=== PATIENT | male | born 1955 | race Caucasian/White ===

== ENCOUNTER 2019-08-31 15:32 | Inpatient (IN) | payer OTHER ==
[~2019-08-31] VITALS: Ht 182.9 cm; Wt 114.8 kg
--- OUTSIDE RECORDS SUMMARY | 2019-08-31 15:34 | XMS REPORT ---
Author Author [facility] Address Unknown Phone Unavailable Care Team Providers Care Surgical Services Manager Name Role Phone OVIDIO SJ Unavailable Unavailable Shawnee SHETH Unavailable Unavailable JAY LLANOS Unavailable Unavailable Problems This patient has no known problems. Allergies, Adverse Reactions, Alerts This patient has no known allergies or adverse reactions. Medications This patient has no known medications. Encounters Start Date/Time End Date/Time Encounter Type Admission Type Attending Clinicians [facility] Facility Care Department Encounter ID 2019-02-06 02:50:00 2019-02-06 02:50:00 Outpatient E [facility] MED [id number] Results Test Description Test Time Test Comments Text Results Atomic Results Result Comments BASIC METABOLIC PANEL 2019-04-03 07:48:00 SODIUM (BEAKER) (test tyjt=916) 133 meq/L 136-145 POTASSIUM (BEAKER) (test vyrl=328) 4.5 meq/L 3.5-5.1 Specimen slightly hemolyzed CHLORIDE (BEAKER) (test yttz=807) 97 meq/L 98-107 CO2 (BEAKER) (test unbw=054) 27 meq/L 22-29 BLOOD UREA NITROGEN (BEAKER) (test mlsr=264) 33 mg/dL 7-21 CREATININE (BEAKER) (test ktso=278) 1.49 mg/dL 0.57-1.25 Specimen slightly hemolyzed GLUCOSE RANDOM (BEAKER) (test uujr=091) 188 mg/dL 70-105 CALCIUM (BEAKER) (test terc=486) 10.0 mg/dL 8.4-10.2 EGFR (BEAKER) (test zcdm=6178) 48 mL/min/1.73 sq m ESTIMATED GFR IS NOT ACCURATE CREATININE CLEARANCE IN PREDICTING GLOMERULAR FILTRATION RATE. ESTIMATED GFR IS NOT APPLICABLE FOR DIALYSIS PATIENTS. CBC W/PLT COUNT & AUTO [id number] 07:33:00* Test Item Value Reference Range Comments WHITE BLOOD CELL COUNT (BEAKER) (test thze=067) 5.0 K/ L 3.5-10.5 RED BLOOD CELL COUNT (BEAKER) (test cjry=576) 5.15 M/ L 4.63-6.08 HEMOGLOBIN (BEAKER) (test jkjq=517) 14.4 GM/DL 13.7-17.5 HEMATOCRIT (BEAKER) (test zinp=725) 43.8 % 40.1-51.0 MEAN CORPUSCULAR VOLUME (BEAKER) (test uipt=699) 85.0 fL 79.0-92.2 MEAN CORPUSCULAR HEMOGLOBIN (BEAKER) (test whxi=850) 28.0 pg 25.7-32.2 MEAN CORPUSCULAR HEMOGLOBIN CONC (BEAKER) (test ihwu=621) 32.9 GM/DL 32.3-36.5 RED CELL DISTRIBUTION WIDTH (BEAKER) (test fede=305) 15.2 % 11.6-14.4 PLATELET COUNT (BEAKER) (test bmho=395) 130 K/CU MM 150-450 MEAN PLATELET VOLUME (BEAKER) (test smzi=102) 10.1 fL 9.4-12.4 NUCLEATED RED BLOOD CELLS (BEAKER) (test dqby=486) 0 /100 WBC 0-0 NEUTROPHILS RELATIVE PERCENT (BEAKER) (test wnvq=622) 60 % LYMPHOCYTES RELATIVE PERCENT (BEAKER) (test hbdi=391) 24 % MONOCYTES RELATIVE PERCENT (BEAKER) (test ndru=920) 12 % EOSINOPHILS RELATIVE PERCENT (BEAKER) (test fwcp=498) 3 % BASOPHILS RELATIVE PERCENT (BEAKER) (test ghll=967) 1 % NEUTROPHILS ABSOLUTE COUNT (BEAKER) (test xaak=325) 3.00 K/ L 1.78-5.38 LYMPHOCYTES ABSOLUTE COUNT (BEAKER) (test qurv=629) 1.23 K/ L 1.32-3.57 MONOCYTES ABSOLUTE COUNT (BEAKER) (test kujy=621) 0.59 K/ L 0.30-0.82 EOSINOPHILS ABSOLUTE COUNT (BEAKER) (test fwii=202) 0.17 K/ L 0.04-0.54 BASOPHILS ABSOLUTE COUNT (BEAKER) (test dszg=778) 0.04 K/ L 0.01-0.08 IMMATURE GRANULOCYTES-RELATIVE PERCENT (BEAKER) (test hhum=2742) 0 % 0-1 BASIC METABOLIC [id number] 06:54:00* Test Item Value Reference Range Comments SODIUM (BEAKER) (test yixg=072) 134 meq/L 136-145 POTASSIUM (BEAKER) (test ykkt=973) 4.4 meq/L 3.5-5.1 Specimen slightly hemolyzed CHLORIDE (BEAKER) (test eors=053) 103 meq/L 98-107 CO2 (BEAKER) (test bnqx=832) 22 meq/L 22-29 BLOOD UREA NITROGEN (BEAKER) (test zzyk=733) 12 mg/dL 7-21 CREATININE (BEAKER) (test sypo=168) 0.79 mg/dL 0.57-1.25 Specimen slightly hemolyzed GLUCOSE RANDOM (BEAKER) (test cedu=705) 150 mg/dL 70-105 CALCIUM (BEAKER) (test cwlx=595) 9.1 mg/dL 8.4-10.2 EGFR (BEAKER) (test hrmk=3509) 100 mL/min/1.73 sq m ESTIMATED GFR IS NOT ACCURATE CREATININE CLEARANCE IN PREDICTING GLOMERULAR FILTRATION RATE. ESTIMATED GFR IS NOT APPLICABLE FOR DIALYSIS PATIENTS. CBC (HEMOGRAM ONLY)2019-01-19 06:36:00* Test Item Value Reference Range Comments WHITE BLOOD CELL COUNT (BEAKER) (test ccyc=816) 5.2 K/ L 3.5-10.5 RED BLOOD CELL COUNT (BEAKER) (test euws=496) 5.02 M/ L 4.63-6.08 HEMOGLOBIN (BEAKER) (test zamx=219) 13.9 GM/DL 13.7-17.5 HEMATOCRIT (BEAKER) (test ttwa=117) 43.4 % 40.1-51.0 MEAN CORPUSCULAR VOLUME (BEAKER) (test myio=678) 86.5 fL 79.0-92.2 MEAN CORPUSCULAR HEMOGLOBIN (BEAKER) (test wcit=485) 27.7 pg 25.7-32.2 MEAN CORPUSCULAR HEMOGLOBIN CONC (BEAKER) (test rslo=198) 32.0 GM/DL 32.3-36.5 RED CELL DISTRIBUTION WIDTH (BEAKER) (test imod=812) 14.9 % 11.6-14.4 PLATELET COUNT (BEAKER) (test gbno=450) 103 K/CU MM 150-450 MEAN PLATELET VOLUME (BEAKER) (test cxpv=553) 11.4 fL 9.4-12.4 NUCLEATED RED BLOOD CELLS (BEAKER) (test geyk=820) 0 /100 WBC 0-0 POCT-GLUCOSE [id number] 23:57:00* Test Item Value Reference Range Comments POC-GLUCOSE METER (BEAKER) (test wtkc=1745) 184 mg/dL 70-110 TESTED AT [place] [address] [id number] 21:13:00* Test Item Value Reference Range Comments ACTIVATED CLOTTING TIME (BEAKER) (test hpfe=395) 131 sec TESTED AT [place] [address] [id number] 18:58:00* Test Item Value Reference Range Comments ACTIVATED CLOTTING TIME (BEAKER) (test lawi=324) 158 sec TESTED AT [place] [address] [id number] 15:36:00* Test Item Value Reference Range Comments ACTIVATED CLOTTING TIME (BEAKER) (test ogek=376) 219 sec TESTED AT [place] [address] [id number] 15:36:00* Test Item Value Reference Range Comments ACTIVATED CLOTTING TIME (BEAKER) (test qyvs=483) 224 sec TESTED AT [place] [address] [id number] 15:36:00* Test Item Value Reference Range Comments ACTIVATED CLOTTING TIME (BEAKER) (test nuuc=467) 279 sec TESTED AT [place] [address] BASIC METABOLIC [id number] 09:32:00* Test Item Value Reference Range Comments SODIUM (BEAKER) (test ecjo=300) 135 meq/L 136-145 POTASSIUM (BEAKER) (test faze=775) 3.7 meq/L 3.5-5.1 CHLORIDE (BEAKER) (test drva=332) 100 meq/L 98-107 CO2 (BEAKER) (test psfm=115) 25 meq/L 22-29 BLOOD UREA NITROGEN (BEAKER) (test ysuv=629) 20 mg/dL 7-21 CREATININE (BEAKER) (test nqxo=174) 1.06 mg/dL 0.57-1.25 GLUCOSE RANDOM (BEAKER) (test dzjv=003) 181 mg/dL 70-105 CALCIUM (BEAKER) (test vela=497) 9.3 mg/dL 8.4-10.2 EGFR (BEAKER) (test srlf=5600) 71 mL/min/1.73 sq m ESTIMATED GFR IS NOT ACCURATE CREATININE CLEARANCE IN PREDICTING GLOMERULAR FILTRATION RATE. ESTIMATED GFR IS NOT APPLICABLE FOR DIALYSIS PATIENTS. CBC (HEMOGRAM ONLY)2019-01-18 09:18:00* Test Item Value Reference Range Comments WHITE BLOOD CELL COUNT (BEAKER) (test bwvv=395) 5.1 K/ L 3.5-10.5 RED BLOOD CELL COUNT (BEAKER) (test vdnu=803) 5.09 M/ L 4.63-6.08 HEMOGLOBIN (BEAKER) (test exdi=772) 13.9 GM/DL 13.7-17.5 HEMATOCRIT (BEAKER) (test sbmr=668) 43.7 % 40.1-51.0 MEAN CORPUSCULAR VOLUME (BEAKER) (test hbxe=731) 85.9 fL 79.0-92.2 MEAN CORPUSCULAR HEMOGLOBIN (BEAKER) (test lvyz=383) 27.3 pg 25.7-32.2 MEAN CORPUSCULAR HEMOGLOBIN CONC (BEAKER) (test qbsa=380) 31.8 GM/DL 32.3-36.5 RED CELL DISTRIBUTION WIDTH (BEAKER) (test vkdl=320) 14.5 % 11.6-14.4 PLATELET COUNT (BEAKER) (test uvhk=621) 99 K/CU MM 150-450 MEAN PLATELET VOLUME (BEAKER) (test kbug=402) 11.2 fL 9.4-12.4 NUCLEATED RED BLOOD CELLS (BEAKER) (test xrjo=096) 0 /100 WBC 0-0 CT, CTA [id number] 16:42:00Addendum BeginsREPORT STATUS:A Addendum: I agree with the previously described non vascular findings. Signed: Jose Yeager Verified Date/Time: 01/10/2019 16:42:17 Reading Location: [place] [address] Angio Body Reading RoomAddendum EndsFINAL REPORT CT angiography of the thoracoabdominal aorta and pelvic arteries, 09 January 2019 INDICATION: This is a 63 year old male with a diagnosis of aortic stenosis, presents for preprocedure TAVR assessment. This study is performed in an attempt to avoid an invasive procedure. TECHNIQUE: Spiral acquisition before and during intravenous contrast administration using a Angelina multidetector CT scanner. Images were obtained before and during the dynamic passage of intravenous contrast material. Multi-planar 3-D volume- rendering reconstruction was performed using an independent workstation interactively by the interpreting physician as well as the 3-D specialist for optimal visualization of the thoracoabdominal aorta, the pelvic arteries as well as its proximal branches. Please refer to the contrast sheet scanned in the EPIC system for the amount and route of contrast given. This exam was performed according to our departmental dose-optimisation programme, which includes au tomated exposure control, adjustment of the mA and/or kV according to patient si ze and/or use of iterative reconstruction technique. Dose modulation, iterative reconstruction, and/or weight based adjustment of the mA/kV was utilized to redu ce the radiation dose to as low as reasonably achievable. FINDINGS: VASCULAR: E lectronic device is identified in the left upper chest, with associated surgical clips identified. Pacing leads are identified in the right-sided cardiac chambe rs. The central pulmonary artery is prominent. There is no evidence of central p ulmonary artery embolism. The cardiac chambers demonstrate normal atrioventricul ar and ventriculoarterial concordance, and systemic and pulmonary venous return. The left ventricle is normal in size. Mild left atrial prominence is identified. Coronary artery origins are normal and diffuse artery calcification identified. Mitral annular calcification is seen in the anterior mitral valve annulus. Pat ient is post coronary artery bypass surgery. The left internal mammary artery gr aft is seen connecting to the distal LAD that is widely patent. At image 78, the internal mammary graft is immediately posterior, and to the left side of the st ernum. Furthermore, 2 other bypass grafts are seen, one to the diagonal artery a nd one to the left circumflex system and they appears to be patent. The more sup erior bypass graft, at image 99, is approximately 1.5 cm posterior to the sternu m, and the more inferior bypass graft, image 114 is approximately 19 mm behind t he sternum. There is also a bypass graft to the right coronary artery territory but it appears to be occluded. Patient has a diagnosis of aortic stenosis. The a ortic valve is tricuspid. The aortic Agatston score is 1428. The aortic valve ar ea is not well measured. The location of aortic valvular calcification can be se en in reformatted data set sent to PACS. Regarding the aorta, the aortic root dunham s minimal calcification identified. Mild ectasia is seen in the mid ascending th oracic aorta and only tiny calcification is seen in the ascending thoracic aorta . The transverse arch and descending thoracic aorta had minimal calcification id entified. The abdominal aorta has overall mild calcific and noncalcific atherosc lerosis seen. No acute aortic pathology is identified and no dissection or conta ined rupture is seen. Arch vessel branching pattern is normal and the visualised arch vessels are seen to be widely patent proximally. The left subclavian arter y, image 22 measuring 8 mm in diameter and the right subclavian artery, at image 13, it measures approximately 7 to 8 mm in diameter. The coeliac axis, SMA, JESIKA are widely patent. There are single left and right renal arteries that are wide ly patent. Early branching is seen in the left renal artery. Single left and 2 r ight renal veins are seen, draining normally into the IVC. The common iliac, ext ernal iliac, common femoral, and the visualised superficial femoral arteries, bi laterally, are widely patent with minimal calcific atherosclerosis identified. D imensions that may be helpful for TAVR as follows: Only minimal calcification is seen in the aortic root, and the ascending thoracic aorta only had tiny calcifi cation present. The major and minor aortic annulus diameter measures 30.22 and 0.9 mm, respectively. The aortic annulus perimeter measured 81 mm and the cross- sectional area measures 495 mm2. The aortic annulus diameter at the traditional LVOT and coronal LVOT measures 22.1 and 23.0 mm, respectively. For reference pur pose, per [employer]OWMAN S3 brochure, recommendation are as follows: CT area between 27 3 to 345 mm2 (20 mm valve); 338 to 430 mm2 (23 mm valve); 430 to 546 mm2 (26 mm valve); 540 to 683 mm2 (29 mm valve). For reference purpose, per [employer] t R brochure, recommendation are as follows: CT perimeter between 56.5-62.8 mm ( 23 mm valve); 62.8-72.3 mm (26 mm valve); 72.3-81.7 mm (29 mm valve); and 81.7-9 4.2. mm (34 mm valve). Agatston Score is 1428. The sinus of Valsalva height, R CC (systole): 17.2 mmThe sinus of Valsalva height, LCC (systole): 13.9 mm The si nus of Valsalva diameter, RCC (systole): 34.9 mmThe sinus of Valsalva diameter, LCC (systole): 35.7 mmThe sinus of Valsalva diameter, NCC (systole): 32.6 mm The takeoff of the most inferior bypass graft to the aortic annulus has a distance of 2.5 cm. See snapshot for details. The sinotubular junction measures approxima tely 33.0 x 32.3 mm. The aortic root angulation measures 38.5 degrees. The minim al and perpendicular abdominal aortic diameter measures 15.5 and 16.0 mm, respec tively. There is no evidence of thoracoabdominal aortic aneurysm or stent cathie cement present. The minimum and the perpendicular left common iliac artery measu res 6.9 and 9.9 mm, respectively with mild tortuosity and yzsv-gz-peabefuw calc ific and noncalcific atherosclerosis present. The minimum and the perpendicular left external iliac artery measures 7.4 and 7.7 mm, respectively with mild tor tuosity and no calcific atherosclerosis present. The minimum and the perpendicu lar left femoral artery measures 7.10 and 7.3 mm, respectively with minimal tor tuosity and mild calcific atherosclerosis present. The minimum and the perpendi cular right common iliac artery measures 7.5 and 8.0 mm, respectively with mild tortuosity and tyeu-wg-uqnxtlwm calcific atherosclerosis present. The minimum and the perpendicular right external iliac artery measures 6.9 and 8.0 mm, resp ectively with mild tortuosity and xazs-qb-pygfdigp calcific atherosclerosis pr esent. The minimum and the perpendicular right femoral artery measures 7.7 and 7 .7 mm, respectively with mild tortuosity and mild calcific atherosclerosis pre sent. NON-VASCULAR: The visualised thyroid gland appears unremarkable. Patient is post median sternotomy. The chest wall and mediastinum has a number of lymph nodes identified. They are mildly prominent. At image 93, one lymph node measur es 13 mm in diameter. In the subcarinal area, one of the lymph nodes measures ap proximately 12 mm image 145. Overall, they could be reactive in nature. An adden dum will be dictated thereafter, if needed. In the lung windows, no endobronchia l lesion is seen. Small right basal effusion is identified. Some subsegmental at electatic changes are seen. Pulmonary vasculature is somewhat prominent suggesti ng a degree of underlying cardiac congestion. Some subsegmental atelectatic sharp ges identified. Overall, no suspicious pulmonary nodule is appreciated. In the a bdomen, the liver and spleen appears unremarkable. The liver edge is smooth. No abnormal enhancing structure is identified. In the AP orientation, the spleen is minimally prominent, measure 13.7 cm in diameter. Clinical significance of this finding is uncertain. The gallbladder, and the pancreas appears unremarkable. T he adrenal glands are not enlarged. No acute renal pathology is seen and no hydr onephrosis or perirenal fluid collection is identified. Bowel is not well assess ed by CT angiography as enteric contrast not given. No obvious bowel dilation is identified. Fat-containing inguinal hernia is identified in the left. Small maria a unt of perihepatic ascites is identified, and small amount of free fluid is iden tified in the dependent portion of the pelvis. No free air is identified abdomen and pelvis. The prostate is mildly prominent. The bladder appears unremarkable. Small lymph nodes are seen in both groins, considered nonspecific in nature. Th ere are also some tiny para-aortic lymph nodes identified, less than 1 cm in siz e, therefore considered nonspecific in nature. In the bony windows, no acute bon y pathology is seen. Degenerative changes are noted diffusely. Surgical clip is identified anterior to the pacemaker body likely represent recent implantation. Tiny foci of air is identified in the pectoral region superiorly in the left at image 37, again most likely represent recent pacemaker placement. CONCLUSIONS: 1. Patient has a diagnosis of aortic stenosis. The aortic valve is tricuspid. T he aortic Agatston score is over 1400. The aortic valve area is not well measure d. Mitral annular calcification is seen in the anterior mitral valve annulus. Mi nimal calcification seen in the aortic root and mild ectasia is seen in the mid ascending thoracic aorta. No acute aortic pathology is identified. Dimensions t hat may be helpful for TAVR as described above. 2. Patient is post coronary art debora bypass surgery. A total of 3 patent bypass grafts are identified, and in add ition one occluded graft to the RCA is seen. 3. The pulmonary vasculature is pr ominent indicating underlying cardiac congestion. Right basal pleural effusion i s identified. No evidence of central pulmonary artery embolism and the pulmonary artery is mildly prominent. 4. Other findings as described above. 5. An adden dum will be dictated by the Marine Structural Welder Radiologist regarding the nonvascular fin dings. Signed: Curtis Gtz Verified Date/Time: 01/09/2019 16:55:5 5 Reading Location: [place] [address] Cardiology MRI , CTA, [id number] 16:42:00 Addendum BeginsREPORT STATUS:A Addendum: I agree with the previously described non vascular findings. Signed: Jose Yeager Ve rified Date/Time: 01/10/2019 16:42:17 Reading Location: [place] [address] Angio Body Reading RoomAddendum EndsFINAL REPORT CT angiography of t he thoracoabdominal aorta and pelvic arteries, 09 January 2019 INDICATION: This is a 63 year old male with a diagnosis of aortic stenosis, presents for preproce dure TAVR assessment. This study is performed in an attempt to avoid an invasiv e procedure. TECHNIQUE: Spiral acquisition before and during intravenous contras t administration using a Angelina multidetector CT scanner. Images were obtained before and during the dynamic passage of intravenous contrast material. Multi-p lanar 3-D volume-rendering reconstruction was performed using an independent wor kstation interactively by the interpreting physician as well as the 3-D speciali st for optimal visualization of the thoracoabdominal aorta, the pelvic arteries as well as its proximal branches. Please refer to the contrast sheet scanned in the EPIC system for the amount and route of contrast given. This exam was perfor med according to our departmental dose-optimisation programme, which includes au tomated exposure control, adjustment of the mA and/or kV according to patient si ze and/or use of iterative reconstruction technique. Dose modulation, iterative reconstruction, and/or weight based adjustment of the mA/kV was utilized to redu ce the radiation dose to as low as reasonably achievable. FINDINGS: VASCULAR: E lectronic device is identified in the left upper chest, with associated surgical clips identified. Pacing leads are identified in the right-sided cardiac chambe rs. The central pulmonary artery is prominent. There is no evidence of central p ulmonary artery embolism. The cardiac chambers demonstrate normal atrioventricul ar and ventriculoarterial concordance, and systemic and pulmonary venous return. The left ventricle is normal in size. Mild left atrial prominence is identified. Coronary artery origins are normal and diffuse artery calcification identified. Mitral annular calcification is seen in the anterior mitral valve annulus. Pat ient is post coronary artery bypass surgery. The left internal mammary artery gr aft is seen connecting to the distal LAD that is widely patent. At image 78, the internal mammary graft is immediately posterior, and to the left side of the st ernum. Furthermore, 2 other bypass grafts are seen, one to the diagonal artery a nd one to the left circumflex system and they appears to be patent. The more sup erior bypass graft, at image 99, is approximately 1.5 cm posterior to the sternu m, and the more inferior bypass graft, image 114 is approximately 19 mm behind t he sternum. There is also a bypass graft to the right coronary artery territory but it appears to be occluded. Patient has a diagnosis of aortic stenosis. The a ortic valve is tricuspid. The aortic Agatston score is 1428. The aortic valve ar ea is not well measured. The location of aortic valvular calcification can be se en in reformatted data set sent to PACS. Regarding the aorta, the aortic root dunham s minimal calcification identified. Mild ectasia is seen in the mid ascending th oracic aorta and only tiny calcification is seen in the ascending thoracic aorta . The transverse arch and descending thoracic aorta had minimal calcification id entified. The abdominal aorta has overall mild calcific and noncalcific atherosc lerosis seen. No acute aortic pathology is identified and no dissection or conta ined rupture is seen. Arch vessel branching pattern is normal and the visualised arch vessels are seen to be widely patent proximally. The left subclavian arter y, image 22 measuring 8 mm in diameter and the right subclavian artery, at image 13, it measures approximately 7 to 8 mm in diameter. The coeliac axis, SMA, JESIKA are widely patent. There are single left and right renal arteries that are wide ly patent. Early branching is seen in the left renal artery. Single left and 2 r ight renal veins are seen, draining normally into the IVC. The common iliac, ext ernal iliac, common femoral, and the visualised superficial femoral arteries, bi laterally, are widely patent with minimal calcific atherosclerosis identified. D imensions that may be helpful for TAVR as follows: Only minimal calcification is seen in the aortic root, and the ascending thoracic aorta only had tiny calcifi cation present. The major and minor aortic annulus diameter measures 30.22 and 0.9 mm, respectively. The aortic annulus perimeter measured 81 mm and the cross- sectional area measures 495 mm2. The aortic annulus diameter at the traditional LVOT and coronal LVOT measures 22.1 and 23.0 mm, respectively. For reference pur pose, per [employer] S3 yuliet, recommendation are as follows: CT area between 27 3 to 345 mm2 (20 mm valve); 338 to 430 mm2 (23 mm valve); 430 to 546 mm2 (26 mm valve); 540 to 683 mm2 (29 mm valve). For reference purpose, per [employer] t R brosuresh, recommendation are as follows: CT perimeter between 56.5-62.8 mm ( 23 mm valve); 62.8-72.3 mm (26 mm valve); 72.3-81.7 mm (29 mm valve); and 81.7-9 4.2. mm (34 mm valve). Agatston Score is 1428. The sinus of Valsalva height, R CC (systole): 17.2 mmThe sinus of Valsalva height, LCC (systole): 13.9 mm The si nus of Valsalva diameter, RCC (systole): 34.9 mmThe sinus of Valsalva diameter, LCC (systole): 35.7 mmThe sinus of Valsalva diameter, NCC (systole): 32.6 mm The takeoff of the most inferior bypass graft to the aortic annulus has a distance of 2.5 cm. See snapshot for details. The sinotubular junction measures approxima tely 33.0 x 32.3 mm. The aortic root angulation measures 38.5 degrees. The minim al and perpendicular abdominal aortic diameter measures 15.5 and 16.0 mm, respec tively. There is no evidence of thoracoabdominal aortic aneurysm or stent cathie cement present. The minimum and the perpendicular left common iliac artery measu res 6.9 and 9.9 mm, respectively with mild tortuosity and jvqz-qv-drfnxhxv calc ific and noncalcific atherosclerosis present. The minimum and the perpendicular left external iliac artery measures 7.4 and 7.7 mm, respectively with mild tor tuosity and no calcific atherosclerosis present. The minimum and the perpendicu lar left femoral artery measures 7.10 and 7.3 mm, respectively with minimal tor tuosity and mild calcific atherosclerosis present. The minimum and the perpendi cular right common iliac artery measures 7.5 and 8.0 mm, respectively with mild tortuosity and ghds-va-zgobdapa calcific atherosclerosis present. The minimum and the perpendicular right external iliac artery measures 6.9 and 8.0 mm, resp ectively with mild tortuosity and ndti-sy-tcbjuvin calcific atherosclerosis pr esent. The minimum and the perpendicular right femoral artery measures 7.7 and 7 .7 mm, respectively with mild tortuosity and mild calcific atherosclerosis pre sent. NON-VASCULAR: The visualised thyroid gland appears unremarkable. Patient is post median sternotomy. The chest wall and mediastinum has a number of lymph nodes identified. They are mildly prominent. At image 93, one lymph node measur es 13 mm in diameter. In the subcarinal area, one of the lymph nodes measures ap proximately 12 mm image 145. Overall, they could be reactive in nature. An adden dum will be dictated thereafter, if needed. In the lung windows, no endobronchia l lesion is seen. Small right basal effusion is identified. Some subsegmental at electatic changes are seen. Pulmonary vasculature is somewhat prominent suggesti ng a degree of underlying cardiac congestion. Some subsegmental atelectatic sharp ges identified. Overall, no suspicious pulmonary nodule is appreciated. In the a bdomen, the liver and spleen appears unremarkable. The liver edge is smooth. No abnormal enhancing structure is identified. In the AP orientation, the spleen is minimally prominent, measure 13.7 cm in diameter. Clinical significance of this finding is uncertain. The gallbladder, and the pancreas appears unremarkable. T he adrenal glands are not enlarged. No acute renal pathology is seen and no hydr onephrosis or perirenal fluid collection is identified. Bowel is not well assess ed by CT angiography as enteric contrast not given. No obvious bowel dilation is identified. Fat-containing inguinal hernia is identified in the left. Small maria a unt of perihepatic ascites is identified, and small amount of free fluid is iden tified in the dependent portion of the pelvis. No free air is identified abdomen and pelvis. The prostate is mildly prominent. The bladder appears unremarkable. Small lymph nodes are seen in both groins, considered nonspecific in nature. Th ere are also some tiny para-aortic lymph nodes identified, less than 1 cm in siz e, therefore considered nonspecific in nature. In the bony windows, no acute bon y pathology is seen. Degenerative changes are noted diffusely. Surgical clip is identified anterior to the pacemaker body likely represent recent implantation. Tiny foci of air is identified in the pectoral region superiorly in the left at image 37, again most likely represent recent pacemaker placement. CONCLUSIONS: 1. Patient has a diagnosis of aortic stenosis. The aortic valve is tricuspid. T he aortic Agatston score is over 1400. The aortic valve area is not well measure d. Mitral annular calcification is seen in the anterior mitral valve annulus. Mi nimal calcification seen in the aortic root and mild ectasia is seen in the mid ascending thoracic aorta. No acute aortic pathology is identified. Dimensions t hat may be helpful for TAVR as described above. 2. Patient is post coronary art debora bypass surgery. A total of 3 patent bypass grafts are identified, and in add ition one occluded graft to the RCA is seen. 3. The pulmonary vasculature is pr ominent indicating underlying cardiac congestion. Right basal pleural effusion i s identified. No evidence of central pulmonary artery embolism and the pulmonary artery is mildly prominent. 4. Other findings as described above. 5. An adden dum will be dictated by the Marine Structural Welder Radiologist regarding the nonvascular fin dings. Signed: Curtis Gtz MDReport Verified Date/Time: 01/09/2019 16:55:5 5 Reading Location: [place] [address] Cardiology MRI , CHEST, 1 VIEW, NON [id number] 04:50:00Reason for exam:->pmShould this be performed at the bedside?->YesFINAL REPORT RAD, CHEST, 1 VIEW, NON DEPT INDICATION: pm COMPARISON: Prior day's exam FINDINGS: Portable frontal view of the chest. IMP RESSION: Support Lines: Stable. Lungs and pleura: Unchanged airspace and pleura l opacities. No pneumothorax.Heart and mediastinum: Stable contours. Stable surg ical changes.Additional findings: None. Signed: Aryan Meadeport Erica ified Date/Time: 01/06/2019 04:50:48 Reading Location: [address] Reading Room Electronically signed by: ARYAN MEAD MD on 04:50 AM BASIC METABOLIC [id number] 04:49:00* Test Item Value Reference Range Comments SODIUM (BEAKER) (test aheu=244) 135 meq/L 136-145 POTASSIUM (BEAKER) (test izcv=997) 4.2 meq/L 3.5-5.1 CHLORIDE (BEAKER) (test qloe=631) 102 meq/L 98-107 CO2 (BEAKER) (test ylng=260) 24 meq/L 22-29 BLOOD UREA NITROGEN (BEAKER) (test izpl=365) 17 mg/dL 7-21 CREATININE (BEAKER) (test jxdm=349) 0.81 mg/dL 0.57-1.25 GLUCOSE RANDOM (BEAKER) (test dflo=171) 214 mg/dL 70-105 CALCIUM (BEAKER) (test iiwh=027) 9.0 mg/dL 8.4-10.2 EGFR (BEAKER) (test voce=5576) 97 mL/min/1.73 sq m ESTIMATED GFR IS NOT ACCURATE CREATININE CLEARANCE IN PREDICTING GLOMERULAR FILTRATION RATE. ESTIMATED GFR IS NOT APPLICABLE FOR DIALYSIS PATIENTS. CBC W/PLT COUNT & AUTO [id number] 04:30:00* Test Item Value Reference Range Comments WHITE BLOOD CELL COUNT (BEAKER) (test mdyr=277) 4.4 K/ L 3.5-10.5 RED BLOOD CELL COUNT (BEAKER) (test qwcu=268) 4.90 M/ L 4.63-6.08 HEMOGLOBIN (BEAKER) (test bmev=137) 13.7 GM/DL 13.7-17.5 HEMATOCRIT (BEAKER) (test btrt=053) 43.4 % 40.1-51.0 MEAN CORPUSCULAR VOLUME (BEAKER) (test bnhc=788) 88.6 fL 79.0-92.2 MEAN CORPUSCULAR HEMOGLOBIN (BEAKER) (test znaz=090) 28.0 pg 25.7-32.2 MEAN CORPUSCULAR HEMOGLOBIN CONC (BEAKER) (test uhej=247) 31.6 GM/DL 32.3-36.5 RED CELL DISTRIBUTION WIDTH (BEAKER) (test rmfz=928) 14.2 % 11.6-14.4 PLATELET COUNT (BEAKER) (test edvb=181) 90 K/CU MM 150-450 MEAN PLATELET VOLUME (BEAKER) (test ueel=018) 11.3 fL 9.4-12.4 NUCLEATED RED BLOOD CELLS (BEAKER) (test uemj=703) 0 /100 WBC 0-0 NEUTROPHILS RELATIVE PERCENT (BEAKER) (test qxwm=849) 66 % LYMPHOCYTES RELATIVE PERCENT (BEAKER) (test erre=938) 21 % MONOCYTES RELATIVE PERCENT (BEAKER) (test ovti=501) 10 % EOSINOPHILS RELATIVE PERCENT (BEAKER) (test oonb=249) 2 % BASOPHILS RELATIVE PERCENT (BEAKER) (test ulzb=805) 1 % NEUTROPHILS ABSOLUTE COUNT (BEAKER) (test vjgo=961) 2.87 K/ L 1.78-5.38 LYMPHOCYTES ABSOLUTE COUNT (BEAKER) (test fwxp=421) 0.92 K/ L 1.32-3.57 MONOCYTES ABSOLUTE COUNT (BEAKER) (test baam=495) 0.43 K/ L 0.30-0.82 EOSINOPHILS ABSOLUTE COUNT (BEAKER) (test rwms=997) 0.10 K/ L 0.04-0.54 BASOPHILS ABSOLUTE COUNT (BEAKER) (test epaj=293) 0.04 K/ L 0.01-0.08 IMMATURE GRANULOCYTES-RELATIVE PERCENT (BEAKER) (test amqb=4256) 0 % 0-1 RAD, CHEST, 1 VIEW, NON [id number] 16:32:00Reason for exam:->pmShould this be performed at the bedside?->YesFINAL REPORT INDICATION: pm COMPARISON:None TECHNIQUE: Chest radiograph, single view, portable technique. FINDINGS / IMPRESSION: There is a dual lead left subclavian pacemaker with one lead projecting over the right atrium and the other lead projecting over the right ventricle. There is no pneumothorax. Evidence of coronary bypass surgery with enlarged heart shadow and pulmonary venous congestion. No overt pulmonary edema. Signed: Nael Allred MDReport Verified Date/Time: 01/05/2019 16:32:22 Reading Location: [facility] B1 [id number] Ortho Consult Reading Room
[2019-08-31] MEDS ORDERED: PANTOPRAZOLE 40 MG 10ML VIAL IV STA (15:45)
[2019-08-31] MEDS ORDERED: SODIUM CHLORIDE 0.9% 1000ML 1,000 ML IV STA (15:45)
[2019-08-31 16:03] LABS: BASOPHILS % 0.3 % (0.0-1.0); EOSINOPHILS # (AUTO) 0.1 (0.0-0.4); EOSINOPHILS % 1.9 % (0.0-6.0); HEMATOCRIT 29.1 % (38.2-49.6); HEMOGLOBIN 9.7 g/dL (14.0-18.0); LYMPHOCYTES # (AUTO) 0.6 (1.0-3.2); MEAN CORPUSCULAR HGB CONC 33.3 g/dL (31-35); MEAN CORPUSCULAR VOLUME 90.1 fL (81-99); MONOCYTES # (AUTO) 0.5 (0.2-0.8); MONOCYTES % 8.2 % (4.4-11.3); NEUTROPHILS % 80.3 % (38.7-80.0); PLATELET COUNT 110 x10e3/uL (140-360); RED BLOOD COUNT 3.23 x10e6/uL (4.3-5.7); RED CELL DISTRIBUTION WIDTH 12.9 % (11.7-14.4)
[2019-08-31 16:13] LABS: INR 1.08; PARTIAL THROMBOPLASTIN TIME 29.2 seconds (23.8-35.5); PROTHROMBIN TIME 14.5 seconds (11.9-14.5)
--- NOTE | 2019-08-31 16:16 | Diagnostic Imaging Report ---
EXAMINATION: CHEST SINGLE (PORTABLE) INDICATION: Cough, shortness of breath COMPARISON: None FINDINGS: LINES/TUBES:Left chest with lead pacer. EKG leads overlie the chest. LUNGS:The lungs are moderately inflated. There is perihilar fullness and indistinctness of the pulmonary vasculature. No focal consolidation. PLEURA:No pleural effusion or pneumothorax. MEDIASTINUM:The cardiac silhouette is mildly enlarged. Postop findings of prior CABG. BONES/SOFT TISSUES:No acute osseous injury. Sternotomy wires in place. ABDOMEN:No free air under the diaphragm. IMPRESSION: Mild cardiomegaly and mild pulmonary interstitial edema. Signed by: Rosendo Castellano MD on 08/31/2019 4:12 PM
[2019-08-31 16:23] LABS: ALBUMIN 3.6 g/dL (3.5-5.0); ALBUMIN/GLOBULIN RATIO 1.7 (0.8-2.0); ANION GAP 16.9 mmol/L (8-16); CALCIUM 11.3 mg/dL (8.4-10.2); CREATININE, SERUM 2.42 mg/dL (0.72-1.25); MAGNESIUM 1.7 MG/DL (1.3-2.1); POTASSIUM 3.9 mmol/L (3.5-5.1)
[2019-08-31 16:29] LABS: ACETAMINOPHEN < 3 ug/mL (10-30); SALICYLATE < 5.0 mg/dL (0-30)
[2019-08-31 16:30] LABS: CREATINE KINASE MB 2.3 ng/mL (0-5.0)
[2019-08-31] MEDS ORDERED: CEFEPIME 2 GM/NS 0.9% 100 ML 100 ML IV ONE (16:30)
[2019-08-31 16:31] LABS: B-TYPE NATRIURETIC PEPTIDE2 108.2 pg/mL (0-100)
[2019-08-31 17:00] LABS: BILIRUBIN,URINE NEGATIVE (NEGATIVE); CLARITY,URINE SL CLOUDY (CLEAR); COLOR,URINE YELLOW (YELLOW); KETONES,URINE NEGATIVE (NEGATIVE); LEUKOCYTE ESTERASE ,URINE NEGATIVE (NEGATIVE); NITRITE,URINE NEGATIVE (NEGATIVE); PROTEIN,URINE DIPSTICK NEGATIVE (NEGATIVE); URINE UROBILINOGEN 0.2 mg/dL (0.2 - 1)
[2019-08-31] MEDS ORDERED: VANCOMYCIN 1GM/NS 250 ML 250 ML IV ONE (17:00)
[2019-08-31 17:03] LABS: AMPHETAMINES SCREEN,URINE NEGATIVE (NEGATIVE); BENZODIAZEPINES SCREEN,URINE NEGATIVE (NEGATIVE); PHENCYCLIDINE SCREEN,URINE NEGATIVE (NEGATIVE)
[2019-08-31 17:14] LABS: EPITHELIAL CELLS,URINE FEW /LPF
[2019-08-31] MEDS ORDERED: ONDANSETRON HCL INJ 2MG/ML 2ML 2 MG/ML VIAL IV PRN (17:45)
[2019-08-31] MEDS ORDERED: SODIUM CHLORIDE 0.9% 1000ML 1,000 ML ONE (17:54)
[2019-08-31] MEDS ORDERED: ZOLPIDEM TARTRATE 5 MG TAB PO PRN (19:00)
[2019-08-31] MEDS ORDERED: SODIUM CHLORIDE 0.9% 1000ML 1,000 ML IV ONE (19:15)
--- NOTE | 2019-08-31 20:20 | NUR ---
Received to 189 from ER. Placed on EKG, pulse ox and NBP for monitoring. Admission history, Vaccine Record & Initial admission assessment completed. See interventions.
[2019-08-31 20:30] VITALS: BP 101/77
[2019-08-31] MEDS ORDERED: METFORMIN HCL500 M2 PO (20:52)
[2019-08-31] MEDS ORDERED: TADALAFIL5 MG PO (20:52)
[2019-08-31] MEDS ORDERED: ONGLYZA5 MG PO (20:52)
[2019-08-31] MEDS ORDERED: CLOPIDOGREL75 MG PO (20:52)
[2019-08-31] MEDS ORDERED: ECOTRIN325 MG PO (20:52)
[2019-08-31] MEDS ORDERED: BENADRYL25 M1 (20:52)
[2019-08-31] MEDS ORDERED: LASIX40 MG PO (20:52)
[2019-08-31] MEDS ORDERED: GABAPENTIN300 MG PO (20:52)
[2019-08-31] MEDS ORDERED: ENTRESTO 24 MG1 EACH PO (20:52)
[2019-08-31] MEDS ORDERED: CARVEDILOL12.5 MG PO (20:52)
[2019-08-31] MEDS ORDERED: INFLUENZA VIRUS VAC SPLIT INJ 0.5 ML SYR IM SCH (20:55)
[2019-08-31 20:56] VITALS: BP 94/55
[2019-08-31 21:00] VITALS: BP 100/63
--- NOTE | 2019-08-31 21:00 | NUR ---
Blood drawn for lab.
[2019-08-31 21:30] VITALS: BP 97/53
[2019-08-31] MEDS: PANTOPRAZOLE 40 MG 10ML VIAL IV SCH (21:34)
[2019-08-31 22:09] VITALS: BP 94/51
--- NOTE | 2019-08-31 22:42 | NUR ---
Pt requests CPAP. Call to Dr. Alba. Orders for CPAP given.
[2019-09-01] VITALS (20 sets, daily range): BP systolic 78–121; BP diastolic 43–82
[2019-09-01] MEDS ORDERED: SODIUM CHLORIDE 0.9% 1000ML 1,000 ML ONE (00:58)
--- NOTE | 2019-09-01 01:15 | Consultation ---
DATE OF CONSULTATION: Pulmonary Critical Care Consultation CHIEF COMPLAINT: Nausea, vomiting, and low blood pressure. HISTORY OF PRESENT ILLNESS: The patient is a 64-year-old man. He has a complicated cardiac history. Apparently, he had two cardiac stents placed 10 to 15 years ago. He had an additional six stents placed in the last several years. He also had an AV shawnee ablation and a pacemaker placed. He also has aortic valve stenosis with aortic valve area of 1.1 cm2 and is being considered for a transarterial valve replacement at [facility] in the [facility]. Several days ago, the patient had some nausea and vomiting which he attributes to eating some chicken. His symptoms subsequently resolved, but he started to feel lightheaded and weak. He came to the emergency department and was found to have a low blood pressure along with an elevated creatinine. He received 2 L of fluid and felt much better. He does not complain of chest pain. He is not having difficulty breathing. He does have some mild cough. PAST SURGICAL HISTORY: 1. Status post AV shawnee ablation. 2. Status post pacemaker placement. 3. Status post cardiac stents x8. PAST MEDICAL HISTORY: 1. Coronary artery disease. 2. Aortic stenosis. 3. Atrial flutter. 4. No prior history of kidney disease. 5. History of bronchial asthma, that requires an occasional rescue inhaler. SOCIAL HISTORY: The patient is not a smoker. He is not a drinker. ALLERGIES: HE IS ALLERGIC TO CODEINE. FAMILY HISTORY: Noncontributory. REVIEW OF SYSTEMS: The patient is afebrile. He does not complain of headache or sore throat. He is not having any dyspnea. He does have mild cough. No chest pain. He did have nausea and vomiting, but this has improved. He has no abdominal pain. He has no leg edema. PHYSICAL EXAMINATION: VITAL SIGNS: His blood pressure is 96/60 with heart rate of 66. His respiratory rate is 18 and the saturation is 100% on 2 L. HEENT: Shows no facial swelling or erythema. The oropharynx is normal. LYMPHATIC: Shows no submandibular, cervical, or supraclavicular adenopathy. CARDIAC: Reveals a regular rate and rhythm with normal S1 and S2. LUNGS: Auscultation of lungs shows clear breath sounds bilaterally. There is no wheezing. ABDOMEN: Soft and nontender. There is no rebound or guarding. EXTREMITIES: Show no leg edema or calf tenderness. NEUROLOGICAL: Shows no focal abnormalities. LABORATORY DATA: BUN to creatinine ratio is 77 to 2.4. Sodium is 131. Lactic acid is 2.9 and the calcium is 11.3. The BNP is 108. The platelet count is 110 and hemoglobin is 9.7. MCV is 90 and white blood cell count 6.2. RADIOGRAPHIC DATA: Chest x-ray shows mild cardiomegaly and mild pulmonary interstitial edema. IMPRESSION: 1. Hypovolemia with shock, associated with nausea and vomiting. 2. Acute kidney injury. 3. Chronic systolic congestive heart failure. 4. Coronary artery disease. 5. Paroxysmal atrial flutter that has required an ablation and pacemaker in the past. 6. Aortic stenosis. PLAN: 1. Continue gentle hydration. 2. Repeat creatinine tomorrow. 3. Antiemetics as needed. 4. Cardiac monitoring. Sandeep Alba MD LM/JORGE L /[id number]
[2019-09-01 01:26] LABS: CREATINE KINASE MB 1.9 ng/mL (0-5.0)
[2019-09-01 05:04] LABS: BASOPHILS % 0.4 % (0.0-1.0); EOSINOPHILS # (AUTO) 0.1 (0.0-0.4); EOSINOPHILS % 2.9 % (0.0-6.0); HEMATOCRIT 26.8 % (38.2-49.6); HEMOGLOBIN 8.7 g/dL (14.0-18.0); LYMPHOCYTES # (AUTO) 0.9 (1.0-3.2); MEAN CORPUSCULAR HEMOGLOBIN 30.1 pg (28-32); MEAN CORPUSCULAR HGB CONC 32.5 g/dL (31-35); MEAN CORPUSCULAR VOLUME 92.7 fL (81-99); MONOCYTES # (AUTO) 0.6 (0.2-0.8); MONOCYTES % 13.4 % (4.4-11.3); NEUTROPHILS # (AUTO) 3.1 (2.1-6.9); NEUTROPHILS % 64.9 % (38.7-80.0); PLATELET COUNT 88 x10e3/uL (140-360); RED BLOOD COUNT 2.89 x10e6/uL (4.3-5.7); RED CELL DISTRIBUTION WIDTH 13.1 % (11.7-14.4)
[2019-09-01 05:32] LABS: ALBUMIN/GLOBULIN RATIO 1.4 (0.8-2.0); ANION GAP 9.9 mmol/L (8-16); CALCIUM 9.7 mg/dL (8.4-10.2); CHOL/HDL RATIO 4.5 (3.9-4.7); CREATININE, SERUM 1.42 mg/dL (0.72-1.25); POTASSIUM 3.9 mmol/L (3.5-5.1)
[2019-09-01 05:53] LABS: CREATINE KINASE MB 1.6 ng/mL (0-5.0)
[2019-09-01] MEDS: PANTOPRAZOLE 40 MG 10ML VIAL IV SCH (08:10)
[2019-09-01] MEDS: METFORMIN HCL 500 MG TAB CR PO SCH ×2 (08:54→16:58)
[2019-09-01] MEDS: CARVEDILOL 12.5 MG TAB PO SCH ×2 (08:54→16:58)
[2019-09-01] MEDS: ASPIRIN 81 MG ENTERIC COATED PO SCH (08:54)
[2019-09-01] MEDS: CLOPIDOGREL BISULFATE 75 MG TAB PO SCH (08:55)
[2019-09-01] MEDS: GABAPENTIN 300 MG CAP PO SCH ×2 (08:55→16:58)
[2019-09-01] MEDS ORDERED: ASPIRIN 325 MG TAB EC PO SCH (09:00)
--- NOTE | 2019-09-01 09:37 | Progress Note ---
DATE: Pulmonary Critical Care Progress Note SUBJECTIVE: The patient feels better. He is not lightheaded. He has no further nausea or vomiting. He used CPAP overnight. PHYSICAL EXAMINATION: VITAL SIGNS: The patient is afebrile. The blood pressure is 110/64 and the pulse is 65. Respiratory rate is 18. Saturation is 100%. HEENT: Shows no facial swelling or erythema. CARDIAC: Reveals regular rate and rhythm with normal S1, S2. There are no murmurs or rubs. LUNGS: Auscultation of lungs reveals clear breath sounds bilaterally. There is no wheezing. ABDOMEN: Soft, nontender. There is no rebound or guarding. EXTREMITIES: Show no leg edema or calf tenderness. There is no cyanosis or clubbing. SKIN: Shows no rashes. NEUROLOGICAL: Shows no focal abnormalities. LABORATORY DATA: BUN to creatinine ratio is 56 to 1.42. The other electrolytes are within normal limits. White blood cell count is 4.8 and hemoglobin is 8.7. The platelet count is 88. IMPRESSION: 1. Hypovolemic shock secondary to nausea and vomiting. 2. Acute kidney injury. 3. Thrombocytopenia. 4. Chronic systolic congestive heart failure. 5. Coronary artery disease. 6. Aortic stenosis. 7. Obstructive sleep apnea. 8. Diabetes. PLAN: 1. Continue to monitor creatinine. 2. Restart low-dose Coreg and other home medications. 3. Stop IV fluid. 4. Continue CPAP at night. 5. The patient is okay for Med-Surg with telemetry. Sandeep Alba MD [facility]/[place]NDAL /[id number]
--- NOTE | 2019-09-01 12:13 | NUR ---
Nutrition Screen Note RD Recommendation for Physician: -Consider 2 gm Na, 1800 ADA diet per MD. Plan of Care: RD following, monitoring for tolerance and adequacy. Education provided. Nutrition reason for involvement: Diagnosis- CHF Primary Diagnose(s): CHF, Hypotenion, renal insufficiency PMH: 1. Coronary artery disease. 2. Aortic stenosis. 3. Atrial flutter. 4. No prior history of kidney disease. 5. History of bronchial asthma, that requires an occasional rescue inhaler. Ht: 72 in Wt: 253 lb BMI: 34.3 kg/m2 IBW: [address] Assessment: 09/01: 64 YOM admitted for CHF, hypotension and renal insufficiency. Pt was seen resting within the ICU. The pt reports his appetite has been somewhat poor over the last couple of weeks d/t nausea. Pt stated that he also has had weight loss but stated it was intentional. Pt also reported that he takes lasix at home. Pt was educated on the low Na and DM diet and provided educational handouts. Pt verbalized understanding and stated he tries to follow a low Na diet at home and has seen a dietitian in the past. Chart reviewed. Labs and meds reviewed. Per MD note- stop IF fluid and continue CPAP at night and transfer to med-surg pending. Will continue to monitor. Current Diet: ADA 1800 diet Malnutrition Evaluation 09/01 The patient does not meet criteria for a specified degree of malnutrition at this time. Will re-evaluate at follow-up as appropriate. Diet Education Needs Assessment: Diet education indicated, pt accepted. Learner(s): pt Barriers: none Cultural/Language Modifications: none Readiness: acceptance Method: discussion, handout Topics: DM and Low Na diet Understanding/Compliance: verbalized understanding, anticipate fair compliance Nutrition Care Level: low Signed: Sylvia Martin, RD, LD
--- NOTE | 2019-09-01 13:14 | History and Physical ---
Mr. Dexter is a complex 64-year-old man, who presents to the emergency room by ambulance with weakness, nausea and vomiting. HISTORY OF PRESENT ILLNESS: The patient reports he had been doing pretty well, but in the last 24 hours, he developed nausea, vomiting, diarrhea, and weakness. He is not certain whether he has had bad food or expose to some other illness. PAST MEDICAL HISTORY: Long and complex including coronary artery disease with remote coronary stenting. He had coronary artery bypass graft surgery in 2005 and he developed atrial fibrillation in 2017 treated with anticoagulants unsuccessfully. Since that time, he has been taken care of in [facility] where he has had a pacemaker and multiple other coronary stenting. He was diagnosed with diabetes in 2009. First diagnosis of congestive heart failure in 2014 and multiple transesophageal echo showed thrombus in 2017. MEDICATIONS: His recent home medications include aspirin 325 mg daily, carvedilol 25 mg twice a day, Plavix 75 mg daily, furosemide 40 mg daily, gabapentin 300 mg b.i.d., metformin 500 mg twice a day, Entresto 24/26 mg daily, Onglyza 5 mg daily, and tadalafil 5 mg daily. REVIEW OF SYSTEMS: Pulmonary. He also has sleep apnea. PHYSICAL EXAMINATION: GENERAL: At this time shows an obese man, who is alert, responsive, but presented with a blood pressure around 70/40. HEAD, EYES, EARS, NOSE, AND THROAT: Unremarkable. Neck is thick. Thorax, there is healed midline sternotomy. Healing left subclavian pacemaker site. HEART: Sounds S1, S2 are equal. There is 2/6 systolic murmur of aortic stenosis. ABDOMEN: Protuberant, nontender. EXTREMITIES: No cyanosis, clubbing, or edema. EKG shows atrial pacing and right bundle branch block. LABORATORY DATA: Initial laboratory studies showed hemoglobin 9.7, white count 6.1, BUN 77, creatinine 2.42. Lactic acid 3.9. BNP is 108, hemoglobin 9.7, white count 6.1. ASSESSMENTS: 1. Gastroenteritis, etiology not clear. 2. Dehydration. 3. Coronary artery disease, clinically stable without chest pain or abnormal troponins. 4. Sleep apnea. 5. Pacemaker site appropriate function. 6. Anemia. PLAN: The patient reports that his last evaluation of his aortic valve revealed aortic valve area 1.0 cm2. We will hydrate, add broad-spectrum antibiotics and ask for Critical Care consultation with Dr. Esteban. Further management based on clinical course. MD CHANDRAKANT Pickett/JORGE L /[id number] cc: Sandeep Alba MD
--- NOTE | 2019-09-01 15:15 | NUR ---
pt transferred to 203 after calling report. pt will notify his family and friends of transfer. tolerates well.
--- NOTE | 2019-09-01 15:40 | NUR ---
RCD PT FROM ICU BY BED PT IS ALERT AND ORIENTED VITALS CHECKED PT RESTING ON BED BED LOW AND LOCKED CALL LIGHT IN REACH
[2019-09-01] MEDS ORDERED: PANTOPRAZOLE 40 MG 10ML VIAL IV SCH (17:00)
--- NOTE | 2019-09-01 18:46 | NUR ---
PT RESTING ON BED BED SIDE REPORT GIVEN TO ONCOMING NURSE
[2019-09-02 00:56] VITALS: BP 94/64
[2019-09-02 05:37] LABS: BASOPHILS % 0.5 % (0.0-1.0); EOSINOPHILS # (AUTO) 0.1 (0.0-0.4); EOSINOPHILS % 3.2 % (0.0-6.0); HEMATOCRIT 24.9 % (38.2-49.6); HEMOGLOBIN 8.2 g/dL (14.0-18.0); LYMPHOCYTES # (AUTO) 1.1 (1.0-3.2); LYMPHOCYTES % 28.9 % (18.0-39.1); MEAN CORPUSCULAR HEMOGLOBIN 30.1 pg (28-32); MEAN CORPUSCULAR HGB CONC 32.9 g/dL (31-35); MEAN CORPUSCULAR VOLUME 91.5 fL (81-99); MONOCYTES # (AUTO) 0.4 (0.2-0.8); MONOCYTES % 9.5 % (4.4-11.3); NEUTROPHILS # (AUTO) 2.2 (2.1-6.9); NEUTROPHILS % 57.6 % (38.7-80.0); PLATELET COUNT 76 x10e3/uL (140-360); RED BLOOD COUNT 2.72 x10e6/uL (4.3-5.7)
[2019-09-02 05:55] LABS: ALANINE AMINOTRANSFERASE 13 IU/L (0-55); ALBUMIN 3.1 g/dL (3.5-5.0); ALBUMIN/GLOBULIN RATIO 1.6 (0.8-2.0); ALKALINE PHOSPHATASE 39 IU/L (40-150); ANION GAP 8.2 mmol/L (8-16); BLOOD UREA NITROGEN 23 mg/dL (7-26); BUN/CREATININE RATIO 28 (6-25); CALCIUM 8.8 mg/dL (8.4-10.2); CARBON DIOXIDE 29 mmol/L (22-29); CHLORIDE 102 mmol/L (98-107); CREATININE, SERUM 0.83 mg/dL (0.72-1.25); EST GLOMERULAR FILTRATION RATE > 60 ML/MIN (60-); GLUCOSE 104 mg/dL (74-118); POTASSIUM 4.2 mmol/L (3.5-5.1); SODIUM 135 mmol/L (136-145)
[2019-09-02 05:56] VITALS: BP 90/45
--- NOTE | 2019-09-02 07:10 | NUR ---
REPORT GIVEN TO ONCOMING NURSE.WALKING ROUNDS DONE.PT RESTING IN BED WITH NO S/S OF DISTRESS.CALL LIGHT WITHIN EASY REACH.
[2019-09-02 08:01] VITALS: BP 88/55
[2019-09-02 08:05] VITALS: BP 88/55
--- NOTE | 2019-09-02 08:28 | NUR ---
Rechecked BP 98/58, Didnt give metoprolol, elevated lower extremities, patient not in any distress
[2019-09-02] MEDS: GABAPENTIN 300 MG CAP PO SCH (08:37)
[2019-09-02] MEDS: ASPIRIN 81 MG ENTERIC COATED PO SCH (08:37)
[2019-09-02] MEDS: METFORMIN HCL 500 MG TAB CR PO SCH (08:37)
[2019-09-02] MEDS: CLOPIDOGREL BISULFATE 75 MG TAB PO SCH (08:37)
--- NOTE | 2019-09-02 10:40 | NUR ---
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 So I dont want to wait". Notified Dr Cameron (almond blancher Dr Taylor). IV canula removed with tip intact, no ss of infiltration, BP- 106/61 P=71, Patient not in any distress, He signed AMA. Charge nurse notified
== END 2019-09-02 10:45 | disposition left against medical advice (07) | DRG 682 ==
LOC: ER 15:32 → ERHOLD 17:31 → ICU 20:20 → MED/SURG2 09-01 15:32
PROVIDERS: ADMIT Internal Medicine Cardiovascular Disease; ATTEND Internal Medicine Cardiovascular Disease
DX: N17.9 Acute kidney failure, unspecified (principal); R57.1 Hypovolemic shock; I50.22 Chronic systolic (congestive) heart failure; I48.92 Unspecified atrial flutter; I11.0 Hypertensive heart disease with heart failure; I25.10 Atherosclerotic heart disease of native coronary artery without angina pectoris; I35.0 Nonrheumatic aortic (valve) stenosis; E86.0 Dehydration; D69.6 Thrombocytopenia, unspecified; G47.33 Obstructive sleep apnea (adult) (pediatric); E11.9 Type 2 diabetes mellitus without complications; K52.9 Noninfective gastroenteritis and colitis, unspecified; D64.9 Anemia, unspecified; Z95.0 Presence of cardiac pacemaker; Z95.5 Presence of coronary angioplasty implant and graft; Z95.1 Presence of aortocoronary bypass graft
CPT/HCPCS: 36415; 71045; 80053; 80061; 80307; 80320; 80329; 81001; 82550; 82553; 82948; 83605; 83735; 83880; 84484; 85025; 85379; 85610; 85730; 87040; 87086; 87400; 93005; 93306; 94660; 99284; J2405; J3370; J7030